=== PATIENT | female | born 1980 | race Caucasian/White ===

== ENCOUNTER 2017-06-27 11:53 | Outpatient (CLI) | payer SELFPAY ==
--- NOTE | 2017-06-27 17:17 | Ultrasound Report ---
PELVIC ULTRASOUND: 06/27/2017 CLINICAL INDICATION: Polycystic ovaries on outside MRI. TECHNIQUE: Transabdominal pelvic ultrasound performed for global evaluation. Transvaginal pelvic ultrasound performed for detailed evaluation. Real-time scanning with Doppler performed and static images obtained. The uterus is anteverted, measuring 12.4 x 6.0 x 4.3 cm. The endometrial echo complex measures 12 mm. No focal myometrial lesion is present. The right ovary measures 4.2 x 3.2 x 2.9 cm, and demonstrates follicles measuring up to 2.4 cm. Normal ovarian flow is seen to the surrounding ovarian tissue. The left ovary measures 3.7 x 3.2 x 2.7 cm, and demonstrates smaller follicles. Normal ovarian flow is seen to the surrounding ovarian tissue. No free fluid is present. IMPRESSION: OVARIAN FOLLICLES. NO EVIDENCE OF ABNORMAL FLOW. NORMAL UTERUS. JOB #: [id number] EXT JOB #: MTDD
== END 2017-06-27 11:54 | disposition home or self-care (01) ==
LOC: DI 11:53
PROVIDERS: ATTEND Registered Nurse
DX: R93.8 Abnormal findings on diagnostic imaging of other specified body structures (principal)
CPT/HCPCS: 76830; 76856

== ENCOUNTER 2018-09-07 16:50 | Emergency (ER) | payer SELFPAY ==
[2018-09-07] MEDS ORDERED: KETOROLAC 60 MG/2 ML VIAL IVP STA ×2 (17:49→18:37)
[2018-09-07] MEDS ORDERED: ONDANSETRON 4 MG/2 ML VIAL IVP STA (17:49)
--- NOTE | 2018-09-07 17:51 | ED Physician Documentation ---
PD HPI ABD PAIN - Stated complaint Stated Complaint: BACK/ABD PX - Chief complaint Chief Complaint: Abd Pain - History obtained from History obtained from: Patient - History of Present Illness Timing - onset: Other (She had mild right flank pain for the last couple of days coming and going and resolved with ibuprofen but it became severe and radiating to the right lower quadrant and labia today not associated with vomiting but she did have nausea and sweats with it.) Review of Systems Ten Systems: 10 systems reviewed and negative Constitutional: reports: Reviewed and negative Ears: reports: Reviewed and negative Cardiac: reports: Reviewed and negative Respiratory: reports: Reviewed and negative PD PAST MEDICAL HISTORY - Present Medications Home Medications: Ambulatory Orders Medication Instructions Recorded Confirmed Hydrocodone/Acetaminophen 1 - 2 each PO Q6H PRN #10 tablet 09/07/18 [Hydrocodon-Acetaminophen 5-325] Ketorolac [Toradol] 10 mg PO Q6H #20 tablet 09/07/18 Ondansetron Odt [Zofran] 4 mg TL Q6H PRN #10 tablet 09/07/18 Tamsulosin [Flomax] 0.4 mg PO DAILY #14 capsule 09/07/18 - Allergies Allergies/Adverse Reactions: Allergies Allergy/AdvReac Type Severity Reaction Status Date / Time antibioti Allergy Unknown Uncoded 09/07/18 17:09 PD ED PE NORMAL - Vitals Vital signs reviewed: Yes - General General: Alert and oriented X 3, No acute distress - HEENT HEENT: PERRL, EOMI - Respiratory Respiratory: No respiratory distress, Clear bilaterally - Abdomen Abdomen: Normal bowel sounds, Soft, Non tender - Back Back: No CVA TTP, No spinal TTP - Extremities Extremities: No edema, No calf tenderness / cord - Neuro Neuro: Alert and oriented X 3 Results - Vitals Vitals: Vital Signs - 24 hr 09/07/18 09/07/18 09/07/18 17:06 19:41 20:33 Temperature 36 C L 36.7 C Heart Rate 71 80 Respiratory 22 12 17 Rate Blood Pressure 127/89 H 140/79 H O2 Saturation 99 99 09/07/18 20:53 Temperature Heart Rate 84 Respiratory 16 Rate Blood Pressure 119/86 H O2 Saturation 100 Oxygen O2 Source Room air - Labs Labs: Laboratory Tests 09/07/18 09/07/18 09/07/18 17:41 18:05 18:05 WBC 12.6 H RBC 4.45 Hgb 13.6 Hct 40.3 MCV 90.5 MCH 30.6 MCHC 33.8 RDW 13.7 Plt Count 272 MPV 8.3 Neut # (Auto) 10.1 H Lymph # (Auto) 1.5 [place] # (Auto) 0.7 Eos # (Auto) 0.2 Baso # (Auto) 0.0 Absolute Nucleated RBC 0.00 Nucleated RBC % 0.0 Sodium 136 Potassium 3.4 L Chloride 102 Carbon Dioxide 27 Anion Gap 7.0 BUN 17 Creatinine 0.8 Estimated GFR (MDRD) 81 L Glucose 110 H Calcium 9.6 Total Bilirubin 0.4 AST 18 ALT 18 Alkaline Phosphatase 72 Total Protein 7.5 Albumin 4.5 Globulin 3.0 Albumin/Globulin Ratio 1.5 Lipase 33 Urine Color YELLOW Urine Clarity CLEAR Urine pH 7.5 Ur Specific [place] 1.020 Urine Protein NEGATIVE Urine Glucose (UA) NEGATIVE Urine Ketones 15 H Urine Occult Blood LARGE H Urine Nitrite NEGATIVE Urine Bilirubin NEGATIVE Urine Urobilinogen 0.2 (NORMAL) Ur Leukocyte Esterase TRACE H Urine RBC 11-25 H Urine WBC 4-5 Ur Squamous Epith Cells RARE Squamous Urine Bacteria Rare Ur Microscopic Review INDICATED Urine Culture Comments INDICATED Urine HCG, Qual NEGATIVE - Rads (name of study) CT KUB Radiology: EMP read contemporaneously (5mm distal ureteral stone and liver lesions.) CT abd Radiology: EMP read contemporaneously (Liver lesions c/w hemangiomas) PD MEDICAL DECISION MAKING - ED course ED course: 38-year-old woman presents with acute pain consistent with renal colic. This is proven on CT but also noted to have incidental liver lesions. These were indeterminant on the noncontrast CT and after discussion she would like these worked up tonight and they were consistent with hemangiomas. Her pain was relatively easy to control with just Toradol. Departure - Departure Disposition: 01 Home, Self Care Clinical Impression: Renal colic, Hepatic hemangioma Condition: Good Record reviewed to determine appropriate education?: Yes Instructions: ED Stone Renal W Colic Follow-Up: Mona Lucia ARNP [Primary Care Provider] - Within 3 Days Prescriptions: Hydrocodone/Acetaminophen [Hydrocodon-Acetaminophen 5-325] 1 - 2 each PO Q6H PRN #10 tablet PRN Reason: pain Ketorolac [Toradol] 10 mg PO Q6H #20 tablet Ondansetron Odt [Zofran] 4 mg TL Q6H PRN #10 tablet PRN Reason: Nausea / Vomiting Tamsulosin [Flomax] 0.4 mg PO DAILY #14 capsule Comments: Strain your urine using the provided urine strainers as discussed. Return for new or worsening symptoms. Talk with your doctor about a urology referral early next week if not better at that time.
[2018-09-07 17:53] LABS: BILIRUBIN,URINE NEGATIVE (NEGATIVE); GLUCOSE, URINE (UA) NEGATIVE (NEGATIVE); KETONES,URINE (UA) 15 mg/dL (NEGATIVE); LEUKOCYTE ESTERASE, URINE TRACE (NEGATIVE); NITRITE,URINE NEGATIVE (NEGATIVE); OCCULT BLOOD,URINE LARGE (NEGATIVE); PH,URINE 7.5 PH (5.0-7.5); PROTEIN,URINE NEGATIVE (NEGATIVE); UROBILINOGEN,URINE 0.2 (NORMAL) E.U./dL (NORMAL)
[2018-09-07 18:07] LABS: CLARITY,URINE CLEAR (CLEAR)
[2018-09-07 18:08] LABS: HCG UR QUAL NEGATIVE
[2018-09-07 18:15] LABS: BACTERIA,URINE Rare /HPF (None Seen); SQUAMOUS EPITHELIAL CELL,UR RARE Squamous (<= Few)
[2018-09-07 18:26] LABS: BASOPHILS % (AUTO) 0.2 %; EOSINOPHILS # (AUTO) 0.2 10^3/uL (0.0-0.7); EOSINOPHILS % (AUTO) 1.7 %; HGB - HEMOGLOBIN 13.6 g/dL (12.0-16.0); LYMPHOCYTES # (AUTO) 1.5 10^3/uL (1.5-3.5); LYMPHOCYTES % (AUTO) 12.2 %; MEAN CORPUSCULAR HEMOGLOBIN 30.6 pg (27.0-31.0); MEAN CORPUSCULAR HGB CONC 33.8 g/dL (32.0-36.0); MEAN CORPUSCULAR VOLUME 90.5 fL (81.0-99.0); MEAN PLATELET VOLUME 8.3 fL (7.9-10.8); MONOCYTES # (AUTO) 0.7 10^3/uL (0.0-1.0); MONOCYTES % (AUTO) 5.6 %; NEUTROPHILS # (AUTO) 10.1 10^3/uL (1.5-6.6); NEUTROPHILS % (AUTO) 80.3 %; PLT - PLATELET COUNT 272 10^3/uL (130-450); RED BLOOD COUNT 4.45 10^6/uL (4.20-5.40); RED CELL DISTRIBUTION WIDTH 13.7 % (12.0-15.0); WHITE BLOOD COUNT 12.6 x10^3/uL (4.8-10.8)
[2018-09-07 18:38] LABS: ALBUMIN 4.5 g/dL (3.2-5.5); ALBUMIN/GLOBULIN RATIO 1.5 (1.0-2.2); BILIRUBIN,TOTAL 0.4 mg/dL (0.2-1.0); CALCIUM 9.6 mg/dL (8.5-10.3); CREATININE 0.8 mg/dL (0.4-1.0); TOTAL PROTEIN 7.5 g/dL (6.7-8.2)
--- NOTE | 2018-09-07 19:12 | CT Report ---
Reason: R flank/abd pain Procedure Date: 09/07/2018 Accession Number: [id number] / [id number] Procedure: CT - Abdomen/Pelvis W/O CPT Code: FULL RESULT: EXAM: CT ABDOMEN AND PELVIS (CT KUB) EXAM DATE: 09/07/2018 06:19 PM. CLINICAL HISTORY: R flank/abd pain. COMPARISONS: None. TECHNIQUE: Routine axial helical CT imaging was performed through the abdomen and pelvis without IV contrast. Reconstructions: Coronal and sagittal. In accordance with CT protocol optimization, one or more of the following dose reduction techniques were utilized for this exam: automated exposure control, adjustment of mA and/or KV based on patient size, or use of iterative reconstructive technique. FINDINGS: Lung Bases: Unremarkable. Right Kidney/Ureter: Mild hydronephrosis and hydroureter. There is a 5 x 4 mm calculus in the right pelvis, in the expected location of the distal ureter, 1-2 cm proximal to the UVJ. Minimal perinephric and periureteric stranding. No other urinary tract calculi. Left Kidney/Ureter: No stones, hydronephrosis, or hydroureter. No perinephric fat stranding. Other Solid Organs: Ill-defined hypodense lesions in the right lobe of the liver measuring approximately 3 cm in diameter (for example axial image 27 and coronal image 38). Noncontrast images of the spleen, pancreas, and bilateral adrenal glands demonstrate no significant abnormality. Gallbladder/Bile Ducts: Unremarkable. Peritoneal Cavity: No ascites or pneumoperitoneum. No bowel obstruction or abnormal stool burden. Normal appendix. Pelvic Organs: The urinary bladder is decompressed. The visualized pelvic organs are unremarkable. Vasculature: Unremarkable. Other: None. IMPRESSION: 1. Mild right hydronephrosis and hydroureter, likely secondary to a 5 x 4 mm calculus in the distal ureter. 2. Two hypodense masses are seen in the inferior right lobe of the liver. Multiphase hepatic protocol CT or MRI is recommended for further evaluation. RADIA The above findings were discussed with Dr. Santiago Cee by Dr. Jose Cifuentes at 19:10 hrs on 09/07/18.
[2018-09-07] MEDS ORDERED: IOVERSOL 320 100 ML VIAL IVP ONE ×2 (19:40→20:35)
--- NOTE | 2018-09-07 21:29 | CT Report ---
Reason: IV only, hepatic multiphase protocol d/t liver les Procedure Date: 09/07/2018 Accession Number: [id number] / [id number] Procedure: CT - Abdomen W/ CPT Code: FULL RESULT: EXAM: CT ABDOMEN EXAM DATE: 09/07/2018 08:47 PM. CLINICAL HISTORY: IV only, hepatic multiphase protocol d/t liver les. COMPARISON: Same day. TECHNIQUE: Multiphase helical CT imaging was performed through the abdomen according to the liver protocol. IV contrast: OPTIRAY 320 100mL Enteric contrast: No. Reconstruction: Coronal and sagittal. In accordance with CT protocol optimization, one or more of the following dose reduction techniques were utilized for this exam: automated exposure control, adjustment of mA and/or KV based on patient size, or use of iterative reconstructive technique. FINDINGS: Lung Bases: Unremarkable. Liver: There are multiple liver lesions including a 1.7 cm lesion in the left lobe segment 4A and 2 lesions in the inferior right lobe segment 6 that measure 3.5 cm and 3.1 cm respectively. There is a 1.3 cm lesion in the inferior right lobe segment 5. There may be a vague lesion in segment 2. 8 mm lesion in the dome. All demonstrate mild peripheral nodular enhancement with filling in of contrast on the delayed phase, in keeping with hemangiomas. No suspicious lesion. Hepatic vasculature is normal. Gallbladder/Bile Ducts: Unremarkable. Spleen: Normal. Pancreas: Normal. Adrenal Glands: Normal. Kidneys: Normal. Right hydronephrosis has decreased. Peritoneal Cavity/Bowel: No free fluid, free air or adenopathy. Vasculature: No aneurysms or other significant abnormality. Bones: No significant abnormality. Other: None. IMPRESSION: Multiple liver lesions with imaging characteristics in keeping with hemangiomas. RADIA
[2018-09-07] MEDS ORDERED: HYDROcod/ACET 5/325 Prepack 4 PO STA (21:40)
[2018-09-07] MEDS ORDERED: ONDANSETRON ODT 4 MG Prepack 2 TL STA (21:41)
[2018-09-07] MEDS ORDERED: TAMSULOSIN 0.4 MG CAPSULE PO STA (21:41)
[2018-09-07 21:53] VITALS: BP 138/75
== END 2018-09-07 21:54 | disposition home or self-care (01) ==
LOC: ED 16:50
DX: N23 Unspecified renal colic (principal); D18.09 Hemangioma of other sites; R11.0 Nausea
CPT/HCPCS: 36415; 74160; 74176; 80053; 81001; 81025; 83690; 85025; 87086; 96374; 96376; 99283; 99284; A9270; Q9967; 81003

== ENCOUNTER 2018-09-09 09:04 | Emergency (ER) | payer SELFPAY ==
[2018-09-09 09:52] LABS: BASOPHILS % (AUTO) 0.2 %; BILIRUBIN,URINE NEGATIVE (NEGATIVE); EOSINOPHILS # (AUTO) 0.1 10^3/uL (0.0-0.7); GLUCOSE, URINE (UA) NEGATIVE (NEGATIVE); KETONES,URINE (UA) 15 mg/dL (NEGATIVE); LEUKOCYTE ESTERASE, URINE TRACE (NEGATIVE); LYMPHOCYTES # (AUTO) 1.5 10^3/uL (1.5-3.5); LYMPHOCYTES % (AUTO) 12.6 %; MEAN CORPUSCULAR HEMOGLOBIN 30.5 pg (27.0-31.0); MEAN CORPUSCULAR HGB CONC 34.1 g/dL (32.0-36.0); MEAN CORPUSCULAR VOLUME 89.6 fL (81.0-99.0); MEAN PLATELET VOLUME 8.2 fL (7.9-10.8); MONOCYTES # (AUTO) 0.6 10^3/uL (0.0-1.0); MONOCYTES % (AUTO) 4.8 %; NEUTROPHILS % (AUTO) 81.4 %; NITRITE,URINE NEGATIVE (NEGATIVE); OCCULT BLOOD,URINE LARGE (NEGATIVE); PLT - PLATELET COUNT 268 10^3/uL (130-450); PROTEIN,URINE TRACE mg/dL (NEGATIVE); RED BLOOD COUNT 4.26 10^6/uL (4.20-5.40); RED CELL DISTRIBUTION WIDTH 13.9 % (12.0-15.0); UROBILINOGEN,URINE 0.2 (NORMAL) E.U./dL (NORMAL); WHITE BLOOD COUNT 12.3 x10^3/uL (4.8-10.8)
[2018-09-09 09:56] LABS: CLARITY,URINE CLOUDY (CLEAR)
[2018-09-09 09:57] LABS: HCG UR QUAL NEGATIVE
[2018-09-09] MEDS ORDERED: ONDANSETRON 4 MG/2 ML VIAL IVP STA (09:59)
[2018-09-09] MEDS ORDERED: KETOROLAC 60 MG/2 ML VIAL IVP STA ×2 (09:59→16:23)
[2018-09-09 10:01] LABS: ALBUMIN 4.2 g/dL (3.2-5.5); ALBUMIN/GLOBULIN RATIO 1.3 (1.0-2.2); BILIRUBIN,TOTAL 0.4 mg/dL (0.2-1.0); CALCIUM 8.7 mg/dL (8.5-10.3); CREATININE 0.9 mg/dL (0.4-1.0); TOTAL PROTEIN 7.4 g/dL (6.7-8.2)
[2018-09-09 10:16] LABS: AMORPHOUS SEDIMENT,UR Marked /LPF; CRYSTALS,URINE >50 Calcium Oxalate /LPF; MUCUS,URINE Marked Strands
[2018-09-09 10:17] LABS: BACTERIA,URINE Few /HPF (None Seen); SQUAMOUS EPITHELIAL CELL,UR FEW Squamous (<= Few)
[2018-09-09] MEDS ORDERED: HYDROmorphone 1 MG/ML CARPUJECT IVP STA ×3 (10:39→12:55)
[2018-09-09] MEDS ORDERED: POTASSIUM CHLOR 10 MEQ/100 ML 10 MEQ/100 ML BAG IV ONE (11:30)
[2018-09-09] MEDS ORDERED: SODIUM CHLORIDE 0.9% 1,000 ML IV ONE (11:30)
--- NOTE | 2018-09-09 11:36 | ED Physician Documentation ---
PD HPI ABD PAIN - Stated complaint Stated Complaint: SIDE PX - Chief complaint Chief Complaint: Abd Pain - History obtained from History obtained from: Patient - History of Present Illness Timing - onset: How many days ago (5) Timing - duration: Days (5) Timing - details: Gradual onset, Still present, Waxing and waning Quality: Sharp, Pain Location: RLQ Radiation: Right flank Improved by: Meds Worsened by: Other (nothing) Associated symptoms: Nausea, Vomiting Similar symptoms before: Diagnosis (ureterolithiasis with colic) Recently seen: Emergency Dept - Additional information Additional information: 38-year-old female who began to have some pain in her right flank about 5 days ago the pain was intermittent and improved with use of ibuprofen. She had a worsening of her pain and presented to the emergency department and her pain was easy to control with a single dose of Toradol. At that time she had CT scan of the abdomen and pelvis which demonstrated the presence of a 4X5 mm stone in the distal ureter on the right side. (also had imaging of liver hemangioma found incidentally) The patient had excellent pain relief with the use of Toradol here in the emergency department and she was able to go home, sleep and had a relatively pain-free day yesterday until about 5 PM when she began to experience some pain she had some control of her pain with use of her pain medication. This began to fail overnight. This morning she arrives to the emergency department with uncontrolled pain and vomiting. Review of Systems Constitutional: denies: Fever Eyes: denies: Decreased vision Ears: denies: Ear pain Nose: denies: Rhinorrhea / runny nose, Congestion Throat: denies: Sore throat Cardiac: denies: Chest pain / pressure, Palpitations Respiratory: denies: Dyspnea, Cough GI: reports: Abdominal Pain, Nausea, Vomiting : denies: Dysuria, Frequency Skin: denies: Rash Musculoskeletal: reports: Back pain. denies: Neck pain, Extremity pain Neurologic: denies: Generalized weakness, Focal weakness, Numbness PD PAST MEDICAL HISTORY - Past Medical History Past Medical History: Yes INDUSTRIAL ROOFER: Ovarian cysts, Miscarriage(s) : Kidney stones Psych: Post traumatic stress disorder - Past Surgical History /INDUSTRIAL ROOFER: Dilation and currettage - Present Medications Home Medications: Ambulatory Orders Medication Instructions Recorded Confirmed Hydrocodone/Acetaminophen 1 - 2 each PO Q6H PRN #10 tablet 09/07/18 09/09/18 [Hydrocodon-Acetaminophen 5-325] Ketorolac [Toradol] 10 mg PO Q6H #20 tablet 09/07/18 09/09/18 Ondansetron Odt [Zofran] 4 mg TL Q6H PRN #10 tablet 09/07/18 09/09/18 Tamsulosin [Flomax] 0.4 mg PO DAILY #14 capsule 09/07/18 09/09/18 - Allergies Allergies/Adverse Reactions: Allergies Allergy/AdvReac Type Severity Reaction Status Date / Time antibioti Allergy Unknown Uncoded 09/09/18 09:15 - Social History Does the pt smoke?: No Smoking Status: Never smoker Does the pt drink ETOH?: No Does the pt have substance abuse?: No - Immunizations Immunizations: TDAP >10years/unknown PD ED PE NORMAL - Vitals Vital signs reviewed: Yes (normal ) - General General: Alert and oriented X 3, Well developed/nourished, Other (appears to be struggling with pain. extract operator tone and flat affect consistent with concentration to control pain. ) - HEENT HEENT: Atraumatic, PERRL, EOMI - Neck Neck: Supple, no meningeal sign - Cardiac Cardiac: RRR, No murmur - Respiratory Respiratory: No respiratory distress, Clear bilaterally - Abdomen Abdomen: Soft, Non tender - Back Back: No CVA TTP, No spinal TTP - Derm Derm: Normal color, Warm and dry, No rash - Extremities Extremities: No deformity, No edema - Neuro Neuro: Alert and oriented X 3, polo coach 2-12 intact, No motor deficit, No sensory deficit, Normal speech Eye Opening: Spontaneous Motor: Obeys Commands Verbal: Oriented GCS Score: 15 - Psych Psych: Normal mood Results - Vitals Vitals: Vital Signs - 24 hr 09/09/18 09/09/18 09/09/18 09:12 11:21 13:06 Temperature 36.5 C 36.4 C L Heart Rate 72 76 87 Respiratory 22 16 14 Rate Blood Pressure 121/68 132/71 H 138/75 H O2 Saturation 100 100 100 09/09/18 09/09/18 09/09/18 13:56 15:19 15:23 Temperature 36.5 C Heart Rate 78 73 70 Respiratory 20 20 14 Rate Blood Pressure 135/73 H 133/72 H 137/70 H O2 Saturation 100 100 98 09/09/18 16:00 Temperature Heart Rate 77 Respiratory 15 Rate Blood Pressure 146/78 H O2 Saturation 100 Oxygen O2 Source Room air - Labs Labs: Laboratory Tests 09/09/18 09/09/18 09/09/18 09:30 09:30 09:30 WBC 12.3 H RBC 4.26 Hgb 13.0 Hct 38.2 MCV 89.6 MCH 30.5 MCHC 34.1 RDW 13.9 Plt Count 268 MPV 8.2 Neut # (Auto) 10.0 H Lymph # (Auto) 1.5 [place] # (Auto) 0.6 Eos # (Auto) 0.1 Baso # (Auto) 0.0 Absolute Nucleated RBC 0.00 Nucleated RBC % 0.0 Sodium 131 L Potassium 2.9 L Chloride 98 L Carbon Dioxide 22 Anion Gap 11.0 BUN 10 Creatinine 0.9 Estimated GFR (MDRD) 70 L Glucose 129 H Calcium 8.7 Total Bilirubin 0.4 AST 20 ALT 17 Alkaline Phosphatase 64 Total Protein 7.4 Albumin 4.2 Globulin 3.2 Albumin/Globulin Ratio 1.3 Lipase 32 Urine Color YELLOW Urine Clarity CLOUDY Urine pH 6.0 Ur Specific [place] >=1.030 H Urine Protein TRACE Urine Glucose (UA) NEGATIVE Urine Ketones 15 H Urine Occult Blood LARGE H Urine Nitrite NEGATIVE Urine Bilirubin NEGATIVE Urine Urobilinogen 0.2 (NORMAL) Ur Leukocyte Esterase TRACE H Urine RBC 6-10 H Urine WBC 0-3 Ur Squamous Epith Cells FEW Squamous Urine Crystals >50 Calcium Oxalate Amorphous Sediment Marked Urine Bacteria Few Urine Mucus Marked Strands Ur Microscopic Review INDICATED Urine Culture Comments INDICATED Urine HCG, Qual NEGATIVE PD MEDICAL DECISION MAKING - ED course Complexity details: reviewed old records, reviewed results, re-evaluated patient, considered differential, d/w patient, d/w family ED course: 38-year-old female with a distal right ureter stone has been placed on tamsulosin and pain medication and despite this she is unable to control her pain at home. She comes to the emergency department this morning with uncontrolled pain and vomiting. She is administered intravenous Dilaudid with some improvement in her pain without resolution. She was administered Toradol on arrival. This did not help the way it did previously. She is given intravenous fluids, she requires multiple doses of Dilaudid, she is eventually given intravenous lidocaine with some improvement of the pain. She continues to have some spikes in pain despite this. She has uncontrolled pain related to a large distal ureter stone. She may need intervention and she definitely needs pain control. Contacted Dr. Elda Singh the urologist at [facility] and he has graciously agreed to accept the patient in transfer. Departure - Departure Disposition: 02 Transfer Acute Care Hosp Clinical Impression: Renal colic Condition: Stable
[2018-09-09] MEDS ORDERED: LIDOCAINE-MPF 2% 6 ML in SODIUM CHLORIDE 0.9% 50 ML IV STA (14:35)
[2018-09-09] MEDS ORDERED: LIDOCAINE-MPF 2% 6 ML in SODIUM CHLORIDE 0.9% 50 ML IV SCH (15:00)
[2018-09-09 16:24] VITALS: BP 146/78
== END 2018-09-09 18:30 | disposition short-term general hospital (02) ==
LOC: ED 09:04
DX: N20.1 Calculus of ureter (principal); D18.03 Hemangioma of intra-abdominal structures
CPT/HCPCS: 36415; 80053; 81001; 81025; 83690; 85025; 87086; 96365; 96367; 96375; 96376; 99285; J1170; 81003; 99284

== ENCOUNTER 2019-04-02 08:00 | Outpatient (CLI) | payer OTHER ==
[2019-04-02 15:37] LABS: BILIRUBIN,URINE NEGATIVE (NEGATIVE); GLUCOSE, URINE (UA) NEGATIVE (NEGATIVE); KETONES,URINE (UA) NEGATIVE (NEGATIVE); LEUKOCYTE ESTERASE, URINE NEGATIVE (NEGATIVE); NITRITE,URINE NEGATIVE (NEGATIVE); OCCULT BLOOD,URINE NEGATIVE (NEGATIVE); PH,URINE 6.5 PH (5.0-7.5); PROTEIN,URINE NEGATIVE (NEGATIVE); UROBILINOGEN,URINE 0.2 (NORMAL) E.U./dL (NORMAL)
[2019-04-02 15:43] LABS: CLARITY,URINE CLEAR (CLEAR)
[2019-04-02 15:58] LABS: BACTERIA,URINE None Seen /HPF (None Seen); RBC,URINE None Seen /HPF (0-5); SQUAMOUS EPITHELIAL CELL,UR NONE SEEN (<= Few)
== END 2019-04-02 23:59 | disposition home or self-care (01) ==
LOC: LAB 08:00
PROVIDERS: ATTEND Specialist
DX: N39.0 Urinary tract infection, site not specified (principal)
CPT/HCPCS: 81001; 87086

== ENCOUNTER 2019-04-02 15:03 | Outpatient (CLI) | payer OTHER ==
--- NOTE | 2019-04-02 16:15 | XRAY Report ---
Reason: CALCULUS OF KIDNEY Procedure Date: 04/02/2019 Accession Number: [id number] / [id number] Procedure: XR - Abdomen 1 View X-Ray CPT Code: 97984 FULL RESULT: EXAM: ABDOMEN RADIOGRAPHY EXAM DATE: 04/02/2019 03:36 PM. CLINICAL HISTORY: Calculus of kidney. COMPARISON: None. TECHNIQUE: 1 view. FINDINGS: Bowel Gas Pattern: Within normal limits. No dilated loops. Other: No definite renal calculus detected. IMPRESSION: No candidate focal calcifications. RADIA
== END 2019-04-02 15:04 | disposition home or self-care (01) ==
LOC: DI 15:03
PROVIDERS: ATTEND Specialist
DX: N39.0 Urinary tract infection, site not specified (principal); Z87.442 Personal history of urinary calculi
CPT/HCPCS: 74018; 81001

== ENCOUNTER 2021-06-14 01:25 | Emergency (ER) | payer SELFPAY ==
[2021-06-14 02:00] LABS: BASOPHILS # (AUTO) 0.1 10^3/uL (0.0-0.1); BASOPHILS % (AUTO) 0.6 %; EOSINOPHILS # (AUTO) 0.3 10^3/uL (0.0-0.7); EOSINOPHILS % (AUTO) 2.8 %; HCT - HEMATOCRIT 41.1 % (37.0-47.0); HGB - HEMOGLOBIN 13.6 g/dL (12.0-16.0); LYMPHOCYTES # (AUTO) 3.4 10^3/uL (1.5-3.5); MEAN CORPUSCULAR HEMOGLOBIN 30.4 pg (27.0-31.0); MEAN CORPUSCULAR HGB CONC 33.1 g/dL (32.0-36.0); MEAN CORPUSCULAR VOLUME 91.9 fL (81.0-99.0); MEAN PLATELET VOLUME 9.7 fL (7.9-10.8); MONOCYTES # (AUTO) 0.7 10^3/uL (0.0-1.0); MONOCYTES % (AUTO) 6.5 %; NEUTROPHILS # (AUTO) 5.8 10^3/uL (1.5-6.6); NEUTROPHILS % (AUTO) 56.9 %; PLT - PLATELET COUNT 328 10^3/uL (130-450); RED BLOOD COUNT 4.47 10^6/uL (4.20-5.40); RED CELL DISTRIBUTION WIDTH 13.2 % (12.0-15.0); WHITE BLOOD COUNT 10.2 x10^3/uL (4.8-10.8)
[2021-06-14 02:11] LABS: ALBUMIN 4.3 g/dL (3.2-5.5); BILIRUBIN,TOTAL 0.6 mg/dL (0.2-1.0); CREATININE 0.6 mg/dL (0.4-1.0); POTASSIUM 3.8 mmol/L (3.5-5.0); TOTAL PROTEIN 7.6 g/dL (6.7-8.2)
[2021-06-14 02:12] LABS: ALBUMIN/GLOBULIN RATIO 1.3 (1.0-2.2)
[2021-06-14 02:18] LABS: BILIRUBIN,URINE NEGATIVE (NEGATIVE); GLUCOSE, URINE (UA) NEGATIVE (NEGATIVE); KETONES,URINE (UA) NEGATIVE (NEGATIVE); LEUKOCYTE ESTERASE, URINE NEGATIVE (NEGATIVE); NITRITE,URINE NEGATIVE (NEGATIVE); OCCULT BLOOD,URINE NEGATIVE (NEGATIVE); PROTEIN,URINE NEGATIVE (NEGATIVE); UROBILINOGEN,URINE 0.2 (NORMAL) E.U./dL (NORMAL)
[2021-06-14 02:21] LABS: CLARITY,URINE CLEAR (CLEAR); HCG UR QUAL NEGATIVE
--- NOTE | 2021-06-14 03:58 | ED Physician Documentation ---
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 She states that the pain was odd in the nature that it came on very strong very sharp made her nauseous peaked and then felt some improved. The pain is shifted and when she arrives to the emergency department she has marked improvement in her pain. She is mid cycle and has some increased pain with palpation and movement. Review of Systems Constitutional: denies: Fever Eyes: denies: Decreased vision Ears: denies: Ear pain Nose: denies: Congestion Throat: denies: Sore throat Cardiac: denies: Chest pain / pressure Respiratory: denies: Dyspnea, Cough GI: reports: Abdominal Pain, Nausea, Vomiting. denies: Constipation, Diarrhea : reports: Dysuria, Frequency Skin: denies: Rash, Lesions Musculoskeletal: reports: Back pain. denies: Neck pain, Extremity pain PD PAST MEDICAL HISTORY - Past Medical History Past Medical History: Yes LURER: Ovarian cysts, Miscarriage(s), Other : Kidney stones Psych: Post traumatic stress disorder Other Past Medical History: PCOS - Past Surgical History Past Surgical History: Yes General: Appendectomy /LURER: Dilation and currettage - Present Medications Home Medications: Ambulatory Orders Medication Instructions Recorded Confirmed Escitalopram [Lexapro] 15 mg PO DAILY 06/14/21 06/14/21 - Allergies Allergies/Adverse Reactions: Allergies Allergy/AdvReac Type Severity Reaction Status Date / Time antibioti Allergy Unknown Uncoded 06/14/21 01:36 - Social History Does the pt smoke?: No Smoking Status: Never smoker Does the pt drink ETOH?: No Does the pt have substance abuse?: No - Immunizations Immunizations are current?: Yes Immunizations: TDAP >10years/unknown - POLST Patient has POLST: No PD ED PE NORMAL - Vitals Vital signs reviewed: Yes (Hypertensive mild) - General General: Alert and oriented X 3, No acute distress, Well developed/nourished - HEENT HEENT: Atraumatic, PERRL, EOMI - Neck Neck: Supple, no meningeal sign, No bony TTP - Cardiac Cardiac: RRR, No murmur - Respiratory Respiratory: No respiratory distress, Clear bilaterally - Abdomen Abdomen: Normal bowel sounds, Soft, Non distended, No organomegaly, Other (Mild left lower quadrant tenderness to deep palpation.) - Back Back: No CVA TTP, No spinal TTP - Derm Derm: Normal color, Warm and dry, No rash - Extremities Extremities: No deformity, No edema - Neuro Neuro: Alert and oriented X 3, glassware verifier 2-12 intact, No motor deficit, No sensory deficit, Normal speech Eye Opening: Spontaneous Motor: Obeys Commands Verbal: Oriented GCS Score: 15 - Psych Psych: Normal mood, Normal affect Results - Vitals Vitals: Vital Signs - 24 hr 06/14/21 06/14/21 06/14/21 01:36 01:41 04:27 Temperature 36.5 C 36.5 C 36.6 C Heart Rate 78 78 74 Respiratory 16 16 15 Rate Blood Pressure 132/62 H 132/62 H 134/72 H O2 Saturation 99 99 100 Oxygen O2 Source Room air - Labs Labs: Laboratory Tests 06/14/21 06/14/21 06/14/21 01:50 01:50 01:55 WBC 10.2 RBC 4.47 Hgb 13.6 Hct 41.1 MCV 91.9 MCH 30.4 MCHC 33.1 RDW 13.2 Plt Count 328 MPV 9.7 Neut # (Auto) 5.8 Lymph # (Auto) 3.4 [place] # (Auto) 0.7 Eos # (Auto) 0.3 Baso # (Auto) 0.1 Absolute Nucleated RBC 0.00 Nucleated RBC % 0.0 Sodium Potassium Chloride Carbon Dioxide Anion Gap BUN Creatinine Estimated GFR (MDRD) Glucose Calcium Total Bilirubin AST ALT Alkaline Phosphatase Total Protein Albumin Globulin Albumin/Globulin Ratio Lipase Urine Color YELLOW Urine Clarity CLEAR Urine pH 7.0 Ur Specific [place] 1.020 Urine Protein NEGATIVE Urine Glucose (UA) NEGATIVE Urine Ketones NEGATIVE Urine Occult Blood NEGATIVE Urine Nitrite NEGATIVE Urine Bilirubin NEGATIVE Urine Urobilinogen 0.2 (NORMAL) Ur Leukocyte Esterase NEGATIVE Ur Microscopic Review NOT INDICATED Urine Culture Comments NOT INDICATED Urine HCG, Qual NEGATIVE 06/14/21 01:55 WBC RBC Hgb Hct MCV MCH MCHC RDW Plt Count MPV Neut # (Auto) Lymph # (Auto) [place] # (Auto) Eos # (Auto) Baso # (Auto) Absolute Nucleated RBC Nucleated RBC % Sodium 135 Potassium 3.8 Chloride 98 L Carbon Dioxide 25 Anion Gap 12.0 BUN 13 Creatinine 0.6 Estimated GFR (MDRD) 111 Glucose 107 H Calcium 9.0 Total Bilirubin 0.6 AST 15 ALT 14 Alkaline Phosphatase 67 Total Protein 7.6 Albumin 4.3 Globulin 3.3 Albumin/Globulin Ratio 1.3 Lipase 26 Urine Color Urine Clarity Urine pH Ur Specific [place] Urine Protein Urine Glucose (UA) Urine Ketones Urine Occult Blood Urine Nitrite Urine Bilirubin Urine Urobilinogen Ur Leukocyte Esterase Ur Microscopic Review Urine Culture Comments Urine HCG, Qual - Rads (name of study) u/s pelvis Radiology: Prelim report reviewed (Impression: Probable small hemorrhagic cyst involving the right ovary. Short-term follow-up in 6 weeks advised to assess for resolution.), EMP read indepedently, See rad report Procedures - Bedside sono Bedside sono by EMP: With use bedside ultrasound both kidneys are examined there is no evidence of hydronephrosis on either side and the kidneys are sonographically nontender. PD MEDICAL DECISION MAKING - ED course Complexity details: reviewed old records, reviewed results, re-evaluated patient, considered differential, d/w patient ED course: 41-year-old female who has been having some problem with what sounds like interstitial cystitis has developed acute left lower quadrant abdominal pain. She did not have evidence of kidney stone on bedside evaluation with the ultrasound and the ultrasound of the pelvis was obtained. She is midcycle and has had ovarian cyst previously. There is no pain now and flow to both ovaries. There is a question of probable right hemorrhagic cyst. The patient was discharged from the ED prior to the formal report and I have called the patient this morning at 550am and notified her. A follow up in 6 weeks was recommended. Departure - Departure Disposition: 01 Home, Self Care Clinical Impression: Abdominal pain Qualifiers: Abdominal location: left lower quadrant Qualified Code(s): R10.32 - Left lower quadrant pain Condition: Stable Instructions: ED Abdominal Pain Unkn Cause Follow-Up: Mona Lucia FIELD INVESTIGATOR [Primary Care Provider] - Comments: Today we did not find a definitive cause of your pain. We did rule out torsion of your ovaries and kidney stone. If your pain returns a re-evaluation is in order. Discharge Date/Time: 06/14/21 04:27
[2021-06-14 04:28] VITALS: BP 134/72
--- NOTE | 2021-06-14 09:11 | Ultrasound Report ---
PROCEDURE: Pelvic w/Transvag+Doppler Ltd INDICATIONS: LLQ pain hx of polycystic ovary TECHNIQUE: Real-time scanning was performed of the pelvic organs, with image documentation. Additional endovagi nal scanning was necessary due to incomplete visualization of the adnexal and endometrial structures by transabdominal scanning. COMPARISON: CT abdomen pelvis 09/07/2018 FINDINGS: No pathologic free abdominal or pelvic fluid. Uterus: Uterus is enlarged in size at 11.7 cm. The endometrium measures mm in combined thicknes s. Ovaries: Right ovary measures 6.2 x 2.7 x 3.3 cm, volume 20.6 cc. There is a focus of heterogeneous echogenicity within the right ovary measuring 2.9 x 2.2 x 1.8 cm. There is no increased vascularity. The left ovary measures 3.9 x 2.7 x 2.9 cm, volume 15.8 cc. Vascular flow is identified within the ov josé. IMPRESSION: 1. Suspected hemorrhagic right ovarian cyst. As clinically indicated, interval follow-up in 6 weeks m ay be obtained. The above findings are concordant with preliminary report. Reviewed by: Minerva Marin MD on 06/14/2021 9:09 AM PDT Approved by: Minerva Marin MD on 06/14/2021 9:09 AM PDT Station ID: [id number]
== END 2021-06-14 04:27 | disposition home or self-care (01) ==
LOC: ED 01:25
DX: R10.32 Left lower quadrant pain (principal)
CPT/HCPCS: 36415; 80053; 81001; 81003; 81025; 83690; 85025; 87086; 93976; 99284

== ENCOUNTER 2023-08-03 13:27 | Outpatient (CLI) | payer BC | END 2023-08-03 13:28 | disposition home or self-care (01) | LOC: RT 13:27 | PROVIDERS: ATTEND Registered Nurse | DX: R06.2 Wheezing (principal) | CPT/HCPCS: 94060 ==

== ENCOUNTER 2023-12-15 10:28 | Outpatient (CLI) | payer BC ==
--- NOTE | 2023-12-15 14:36 | MRI Report ---
PROCEDURE: Cervical Spine WO INDICATIONS: CHRONIC NECK PAIN TECHNIQUE: Noncontrast sagittal T1 spin echo and T2 fast spin echo, sagittal STIR, foraminal oblique sagittal T2 fast spin echo, and axial gradient echo or T2 fast spin echo through the cervical spine. COMPARISON: None. FINDINGS: Image quality: Excellent. Alignment and Curvature: Straightening of the normal cervical lordosis. Bone Marrow: Marrow demonstrates normal overall signal. Spinal Cord: Visualized spinal cord has normal size and signal. No cerebellar tonsillar herniation. Paraspinous Soft Tissues: No paravertebral masses. Prevertebral soft tissues are normal in thicknes s. C2-C3: Normal in appearance. C3-C4: Normal in appearance. C4-C5: Disc desiccation and minimal posterior disc osteophyte complex. No central canal or neurofora carmen stenosis C5-C6: Normal in appearance. C6-C7: Disc desiccation and minimal posterior disc osteophyte complex. No central canal or neurofora carmen stenosis. C7-T1: Normal in appearance. IMPRESSION: Mild degenerative changes without central canal or neuroforaminal stenosis. Reviewed by: Sven Solares MD on 12/15/2023 2:35 PM PDT Approved by: Sven Solares MD on 12/15/2023 2:35 PM PDT Station ID: [id number]
== END 2023-12-15 10:29 | disposition home or self-care (01) ==
LOC: DI 10:28
PROVIDERS: ATTEND Registered Nurse
DX: G43.109 Migraine with aura, not intractable, without status migrainosus (principal); G43.009 Migraine without aura, not intractable, without status migrainosus; M54.2 Cervicalgia; G89.29 Other chronic pain; R29.2 Abnormal reflex; M47.812 Spondylosis without myelopathy or radiculopathy, cervical region